=== PATIENT | male | born 1960 ===

== ENCOUNTER 2023-02-11 09:01 | Outpatient (REF) | payer OTHER, SELFPAY ==
--- NOTE | 2023-02-11 10:13 | MHC.AU.HA1 ---
Hearing Aid Evaluation Date of Visit: 02/11/23 Historical Information: Description of Hearing: Right Ear - Normal hearing at 250 Hz, sloping to moderate sensorineural hearing loss at 4000 Hz, rising to mild loss at 8000 Hz. Left Ear - Normal to mild loss at 250-1500 Hz, sloping to moderate high frequency sensorineural hearing loss. Speech understanding is 100%, both ears. 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 Audiologic evaluation and medical clearance from Dr. Kendall in chart. Patient reports difficulty understanding in adverse listening conditions. Binaural hearing aids are advised to better facilitate communication. Hearing Aid Prescription: Based on the individual?s shared listening needs, communication environments, dexterity, desire for connectivity, and personal preferences, the following prescription for amplification has been made: Right ear: Make, Model, Color: Phonak Audeo L 70-R Silver Childers Battery Size: Rechargeable Residential Property Manager/Slim Tube: #2 M Type of Earmold/Dome/CShell/SlimTip: Open Dome Left ear:Left ear prescription to be same as Right Hearing Aid above: Make, Model, Color: Phonak Audeo L 70-R Silver Childers Battery Size: Rechargeable Residential Property Manager/Slim Tube: #2 M Type of Earmold/Dome/CShell/SlimTip: Open Dome Plan of Care: Patient wishes to purchase hearing aids as prescribed Action Taken/Action Needed: Hearing Instrument Fitting to be scheduled when materials arrive Primary Diagnosis: H90.3 Bilateral Sensorineural Hearing Loss Signature:Provider: Janet Hernandez, [facility]
== END 2023-02-11 09:02 | disposition home or self-care (01) ==
LOC: HO.HAP 09:01
PROVIDERS: Visit Provider Otolaryngology
DX: Z46.1 Encounter for fitting and adjustment of hearing aid (principal); H90.3 Sensorineural hearing loss, bilateral
CPT/HCPCS: 92591

== ENCOUNTER 2023-02-20 09:04 | Outpatient (REF) | payer OTHER, SELFPAY | END 2023-02-20 09:05 | disposition home or self-care (01) | LOC: HO.HAP 09:04 | PROVIDERS: Visit Provider Otolaryngology | DX: Z46.1 Encounter for fitting and adjustment of hearing aid (principal); H90.3 Sensorineural hearing loss, bilateral | CPT/HCPCS: V5160; V5261 ==

== ENCOUNTER 2023-03-11 08:59 | Outpatient (REF) | payer OTHER, SELFPAY ==
--- NOTE | 2023-03-11 10:12 | MHC.AU.HA3 ---
Hearing Instrument Follow-Up- Binaural Date of Visit: 03/11/23 Right Ear: Model Bashir, Color, Serial Number: Juan Vivas 70-R Chetan Childers Serial #[id number] Vice [employer] Repair Warranty: 05/11/2026 [employer] Loss and Damage Warranty: 05/11/2026 [facility] Service Plan: 02/21/2024 Battery Size: Rechargeable Chips Screen Tender/Slim Tube: #2 M Earmold/Dome/CShell/SlimTip:Large Open Dome Type of Wax Guard: CeruShield Dispensed By: [facility] Date of Fittin02/20/2023 Left Ear: Model Bashir, Color, Serial Number: Juan Vivas 70-R Chetan Childers Serial #[id number] Vice President Talent Management Repair Warranty: 05/22/2026 [employer] Loss and Damage Warranty: 05/22/2026 [facility] Service Plan: 02/21/2024 Battery Size: Rechargeable Chips Screen Tender/Slim Tube: #2 M Earmold/Dome/CShell/SlimTip: Large Open Dome Type of Wax Guard: CeruShield Dispensed By: [facility] Date of Fittin02/20/2023 Follow-Up Summary: Ezra is reportedly doing great with his hearing aids. Data logging showed about 11 hours of use per day. No programming adjustments needed. His only concern at this time is that he lost the bluetooth connection and did not know how to repair the hearing aids to his cellphone. Showed Ezra how to forget all devices and re-pair the hearing aids to both his cellphone and through the toni if issues with connection arise again. Turned on tap control features at Ezra' request. Also reviewed cleaning, changing wax guards and domes. Provided cleaning brush as well. Recommendations: Hearing instrument follow-up or maintenance as needed. Diagnosis Code(s): Primary Diagnosis: H90.3 Bilateral Sensorineural Hearing Loss Signature: Provider: Janet Lynn, [facility]
== END 2023-03-11 09:00 | disposition home or self-care (01) ==
LOC: HO.HAP 08:59
PROVIDERS: Visit Provider Otolaryngology
DX: Z13.89 Encounter for screening for other disorder (principal)